=== PATIENT | female | born 1980 | race Caucasian/White ===

== ENCOUNTER 2017-09-26 19:44 | Emergency (ER) | payer OTHER ==
[~2017-09-26] VITALS: Ht 170.2 cm; Wt 79.8 kg
[~2017-09-26 19:44] MED LIST: BENADRYL25 MG PO; BENTYL20 MG PO; DAILY VITE1 EAC1 PO; FLEXERIL10 MG PO; JUNEL FE 1/21 TABLET PO; NAPROSYN500 MG PO; NOHOMEMEDS; POTASSIUM-9999 MG PO; PREDNISONE20 MG PO; TRAMADOL HCL50 MG PO
[2017-09-26 19:45] VITALS: BP 134/76
[2017-09-26] MEDS ORDERED: KEFLEX500 MG PO (20:21)
== END 2017-09-26 21:06 | disposition home or self-care (01) ==
LOC: EME 19:44 → RME 19:44
PROC: 3E0234Z Introduction of Serum, Toxoid and Vaccine into Muscle, Percutaneous Approach (ICD-10-PCS; principal; 2017-09-26)
DX: S61.217A Laceration without foreign body of left little finger without damage to nail, initial encounter (principal); X58.XXXA Exposure to other specified factors, initial encounter; Z23 Encounter for immunization
CPT/HCPCS: 73130; 99281; 99284